=== PATIENT | female | born 1970 | race Caucasian/White ===

== ENCOUNTER 2018-02-19 13:06 | Observation (INO) | payer BC ==
[2018-02-19] VITALS (9 sets, daily range): BP systolic 84–107; BP diastolic 45–67; BMI 19.4
[~2018-02-19] VITALS: Ht 162.6 cm; Wt 51.4 kg
--- NOTE | ~2018-02-19 | MORECARE ---
CASE MANAGEMENT DISCHARGE SUMMARY PATIENT: MARTINA WOOD ANN UNIT: [id number] ADM DATE: 02/19/18 AGE: 47 : 70 SEX: F ROOM/BED: D.5718 AUTHOR: HIRAL BOURGEOIS PHYSICIAN: REFERRING PHYSICIAN: RANDA SOSA MD DATE OF SERVICE: 02/23/18 Discharge Plan Patient Name: MARTINA WOOD [facility] [facility] 1970 Planned Disposition: Home Anticipated Discharge Date: 02/22/18 Discharge Date: 02/20/2018 Expected LOS: 3 Initial Reviewer: [email or web address] Initial Review Date: 02/23/2018 Generated: 02/23/18 10:45 am Patient Name: MARTINA WOOD Page [id number] at 0945 All edits/amendments must be made on the electronic document DICTATION DATE: 02/23/18943 WASTE SALVAGER: JOSE M 02/23/1844 RPT#: [id number] DC DATE:02/20/18 STATUS: DIS IN [facility] [address] [place] [address] END OF REPORT
--- NOTE | ~2018-02-19 | DS ---
PATIENT:MARTINA WOOD :70 MEDICAL RECORD: [id number] DISCHARGE SUMMARY ADMISSION DATE: 02/19/18 DISCHARGE DATE: 02/20/18 DATE OF DISCHARGE: 02/20/2018 DIAGNOSES: 1. Chest pain. 2. Normal cardiac catheterization. 3. Hyperlipidemia. Mrs. Wood presents with chest pain; however, cardiac catheterization is totally normal. Chest pain is noncardiac in etiology. No further cardiac workup needs to be ascertained. TRANSINT:[id number] Voice Confirmation ID: [id number] DOCUMENT ID: [id number] RANDA SOSA MD at 1324 CC: [id number] DICTATION DATE: 02/20/18 1330 MOTOR HOTEL MANAGER: 02/21/18 0713 DIS IN 02/20/18 [place] [address] [place] [address]
--- NOTE | ~2018-02-19 | OP ---
PATIENT NAME: MARTINA WOOD MEDICAL RECORD: [id number] :[birth year] LOCATION:D.M2 D.2119 ADMISSION DATE:02/19/18 SURGEON: RANDA SOSA MD DATE OF OPERATION: 02/20/2018 DATE OF SERVICE: 02/20/2018 PROCEDURES: 1. Left heart catheterization. 2. Selective coronary angiography. 3. Left ventriculogram. INDICATION: Chest pain compatible with angina. PROCEDURE IN DETAIL: After informed consent was obtained and after detailed explanation of risks, benefits as well as alternative therapies, the patient elected to proceed with angiogram and heart catheterization. The right femoral area was prepped and draped in normal sterile fashion. Right femoral artery was cannulated via modified Seldinger technique with placement of 5-Chinese sheath. All catheters exchanged through this sheath. FINDINGS: Left ventriculogram was performed in standard 30-degree PACE view, reveals good cardiac wall motion throughout all segments. Overall ejection fraction estimated at 60%. SELECTIVE CORONARY ANGIOGRAPHY: Left main, left anterior descending, left circumflex, right coronary artery are all smooth-walled vessels with no angiographic evidence of coronary artery disease. OVERALL IMPRESSION: 1. No angiographic evidence of coronary artery disease. 2. Normal left heart pressures. 3. Normal left ventricular systolic function. Chest pain is noncardiac in etiology. TRANSINT:[id number] Voice Confirmation ID: [id number] DOCUMENT ID: [id number] RANDA SOSA MD at 1324 CC: [id number] DICTATION DATE: 02/20/18 1330 DEMONSTRATOR ELECTRIC GAS APPLIANCES: 02/20/18 1420 DIS IN 02/20/18 [place] [address] [place] [address]
--- NOTE | ~2018-02-19 | HEMODYNAMI ---
PATIENT:MARTINA WOOD MEDICAL RECORD: [id number] : 70 [facility] ADMISSION DATE: 02/19/18 Generatedon:02/20/201813:27 Patient name: MARTINA WOOD Patient #: [id number] SSN: : 1970 Date of study: 02/20/2018 Page: Of Hemodynamic Procedure Report Patient Data Patient Demographics Procedure consent was obtained First Name: MARTINA Gender: Female Last Name: NINA : 1970 [facility] Initial: YULIA Age: 47 year(s) Patient #: [id number] Race: Unknown Additional ID: [id number] Contact details Address: [address] [place] [address] State: [place] City: [place] Zip code: [address] Past Medical History Allergies Allergen Reaction Date Comments Reported Codeine 02/20/2018 Admission Admission Data Admission Date: 02/19/2018 Admission Time: 16:28 Room #: D.2119 Procedure Procedure Types Cath Procedure Diagnostic Procedure [facility] w/Coronaries Procedure Description Procedure Date Procedure Date: 02/20/2018 Procedure Start Time: 13:17 Procedure End Time: 13:25 Procedure Staff Name Function Taran Chao MD Performing Physician Savannah Moreira RT Monitor Silvino Zambrano RT Scrub Kezia Harding RN Nurse Jordi Pulido RN Fourth Officer Procedure Data Cath Procedure Fluoroscopy Diagnostic fluoroscopy Total fluoroscopy Time: 0.9 time: 0.9 min min Diagnostic fluoroscopy Total fluoroscopy dose: 38 dose: 38 mGy mGy Contrast Material Contrast Material Type Amount (ml) Isovue 300 49 Entry Location Entry Primary Successful Side Size Upsize Upsize Entry Closure Succes sful Closure Location (Fr) 1 (Fr) 2 (Fr) Remarks Device Remarks Femoral Right 5 Fr Exoseal artery Estimated blood loss: 5 ml Diagnostic catheters Device Type Used For End Catheter Placement MULTIPACK Pigtail 5 Fr LV Angiography catheter MULTIPACK JL 4.0 5Fr Left Coronary catheter Angiography MULTIPACK 3DRC 5Fr Right Coronary catheter Angiography Procedure Complications No complications Procedure Medications Medication Administration Route Dosage Oxygen etCO2 Nasal cannula 2 l/min Lidocaine 2% added to field 20 Heparin Flush Bag added to field 2 bags (1000units/500ml NS) 0.9% NaCl I.V. 100 ml/hr Versed I.V. 1 mg Fentanyl I.V. 50 mcg Versed I.V. 1 mg Versed I.V. 1 mg Fentanyl I.V. 50 mcg Hemodynamics Rest Heart Rate: 72 (bpm) Snapshots Pre Cath Intra NCS Post Cath Vital Signs Time Heart Resp SPO2 etCO2 NIBP Rhythm Pain Sedation Rate (ipm) (%) (mmHg) (mmHg) Status Level (bpm) 13:07:15 69 23 98 33.9 99/57(82) NSR 0 (11) 10(A) , No pain 13:11:19 68 15 96 26.4 94/60(74) NSR 0 (11) 10(A) , No pain 13:15:23 63 12 98 28.79 110/50(71) NSR 0 (11) 10(A) , No pain 13:19:27 62 15 96 0 93/67(72) NSR 0 (11) 9(A) , No pain 13:23:24 66 16 94 35 107/62(79) NSR 0 (11) 9(A) , No pain 13:26:57 65 15 95 18.1 105/67(89) NSR 0 (11) 10(A) , No pain Medications Time Medication Route Dose Verified Delivered Reason Notes Eff ectiveness by by 13:10:43 Oxygen etCO2 2 Taran Mast used for Nasal l/min Jeremie Harding RN procedure cannula 13:11:39 Lidocaine 2% added 20ml Taran Chirinos for local to vial Jeremie Chao MD anesthetic field 13:11:46 Heparin Flush added 2 Taran Taran used for Bag to bags Jeremie Chao MD procedure (1000units/500ml field NS) 13:11:54 0.9% NaCl I.V. 100 Tarancelestine Fernandezie Per ml/hr Jeremie Harding RN physician 13:14:30 Versed I.V. 1 mg Taran Mast for Jeremie Harding RN sedation 13:14:36 Fentanyl I.V. 50 Taran Fernandezie for mcg Jeremie Harding RN sedation 13:17:28 Versed I.V. 1 mg Taran Mast for Jeremie Harding RN sedation 13:17:34 Fentanyl I.V. 50 Taran Mast for mcg Jeremie Harding RN sedation 13:21:30 Versed I.V. 1 mg Taran Mast for Jeremie Harding RN sedation Procedure Log Time Note 12:40:29 Silvino Zambrano RT(R) sent for patient. Start room use. 12:45:53 Time tracking: Regular hours (M-F 7:00 - 5:00) 12:45:57 Plan of Care:Hemodynamics will remain stable., Cardiac rhythm will remain stable., Comfort level will be maintained., Respiratory function will remain adequate., Patient/ family verbilizes understanding of procedure., Procedure tolerated without complication., Recovers from procedure without complications.. 12:59:53 Patient received from Med II to CCL 3 Alert and oriented. Tansferred to table in Supine position. 12:59:54 Warm blankets applied, and diana hugger turned on for patient comfort. 12:59:55 Correct patient and procedure confirmed by team. 12:59:57 Signed procedure consent form obtained from patient. 12:59:57 ECG and BP/O2 sat monitors applied to patient. 13:06:10 Vital chart was started 13:06:13 Full Disclosure recording started 13:06:19 Rhythm: sinus rhythm 13:06:46 H&P Date Dictated: 02/20/2018 Within 30 days and on chart.. 13:07:05 Pre-procedure instructions explained to patient. 13:07:05 Pre-op teaching completed and patient verbalized understanding. 13:07:13 Family in patients room. 13:07:15 Patient NPO since Midnight. 13:07:22 Is the patient allergic to Iodine/contrast media? No. 13:07:29 Patient allergic to Codeine 13:07:31 Is patient on blood thinner?Yes 13:07:34 ACC The patient was administered the following blood thiners within the last 24 hours: ACCAspirin, ACCPlavix 13:07:36 Patient diabetic? No. 13:07:39 Previous problem with sedation/anesthesia? No ? 13:07:47 Snore? Yes 13:07:48 Sleep apnea? No 13:07:49 Deviated septum? No 13:07:50 Opens mouth fully? Yes 13:07:51 Sticks out tongue? Yes 13:07:53 Airway obstruction? No ? 13:07:55 Dentures? No ? 13:07:58 Pre procedure: right dorsailis pedis pulse 2+ Normal; easily identifiable; not easily obliterated 13:08:00 Modified Kiran's test Ulnar > 7 seconds. 13:08:02 Patient pain scale 0/10 ?. 13:08:08 IV patent on arrival in left forearm with 0.9% NaCl at [facility]. 13:08:11 Lab results completed and on chart. 13:08:15 Right groin area was prepped with chlora-prep and draped in sterile fashion 13:08:16 Alarms reviewed by R. N. 13:08:16 Sharps counted by scrub and verified by R.N. 13:08:20 Use device set Femoral Dx 13:08:21 ACIST Syringe (50193) opened to sterile field. 13:08:21 Bag Decanter (2002S) opened to sterile field. 13:08:22 Medline Cath Pack ([id number]) opened to sterile field. 13:08:23 DIAGNOSTIC WIRE .035 260cm J wire (444463) opened to sterile field. 13:08:24 ACIST Hand Control (70656) opened to sterile field. 13:08:24 ACIST Manifold (37845) opened to sterile field. 13:08:25 DIAGNOSTIC Multipack 5Fr catheter set ([id number]) opened to sterile field. 13:08:25 Tegaderm 4 x 4 (1626W) opened to sterile field. 13:08:26 SHEATH 5FR Salome ([id number]) opened to sterile field. 13:09:46 Baseline sample Acquired. 13:09:51 Final Timeout: patient, procedure, and site verified with staff and physician. All members of the team are in agreement. 13:09:53 Right groin site verified by team. 13:09:56 Physical assessment completed. ASA score P 2 - A patient with mild systemic disease as per Taran Chao MD. 13:09:59 Sedation plan: IV Moderate Sedation Medication:Versed, Fentanyl 13:10:43 Oxygen 2 l/min etCO2 Nasal cannula was administered by Kezia Harding RN; used for procedure; 13:11:39 Lidocaine 2% 20ml vial added to field was administered by Taran Chao MD; for local anesthetic; 13:11:46 Heparin Flush Bag (1000units/500ml NS) 2 bags added to field was administered by Taran Chao MD; used for procedure; 13:11:54 0.9% NaCl 100 ml/hr I.V. was administered by Kezia Harding RN; Per physician; 13:14:30 Versed 1 mg I.V. was administered by Kezia Harding RN; for sedation; 13:14:36 Fentanyl 50 mcg I.V. was administered by Kezia Harding RN; for sedation; 13:16:09 Zero performed for pressure channel P1 13:17:23 Procedure started. 13:17:28 Versed 1 mg I.V. was administered by Kezia Harding RN; for sedation; 13:17:32 Local anesthetic to right femoral artery with Lidocaine 2% by Taran Chao MD.INITIAL ACCESS ONLY 13:17:34 Fentanyl 50 mcg I.V. was administered by Kezia Harding RN; for sedation; 13:18:33 A 5 Fr sheath was inserted into the Right Femoral artery 13:19:00 A MULTIPACK Pigtail 5 Fr catheter was advanced over the wire and used for LV Angiography. 13:19:11 LV gram done using PACE 13:19:14 Injector settings: Ml/sec: 10, Volume: 20, 13:19:21 EF : 60 % 13:19:23 Catheter removed. 13:20:00 A MULTIPACK JL 4.0 5Fr catheter was advanced over the wire and used for Left Coronary Angiography. 13:20:36 Catheter removed. 13:20:56 A MULTIPACK 3DRC 5Fr catheter was advanced over the wire and used for Right Coronary Angiography. 13:21:30 Versed 1 mg I.V. was administered by Kezia Harding RN; for sedation; 13:21:34 Catheter removed. 13:21:38 EXOSEAL 5Fr (EX500) opened to sterile field. 13:21:47 Sheath removed intact; hemostasis achieved with Exoseal to the Right Femoral artery. 13:21:49 Procedure ended.(Physican Out) 13:22:04 Fluoroscopy time 00.90 minutes. 13:22:09 Fluoroscopy dose: 38 mGy 13:22:09 Flurop Dose total: 38 13:22:43 Contrast amount:Isovue 300 49ml. 13:22:44 Sharps counted by scrub and verified by R.N. 13:22:46 Insertion/operative site no bleeding no hematoma. 13:22:48 Post-op/insertion site Right Femoral artery dressed using a 4 x 4 and Tegaderm. 13:22:51 Post right femoral artery:stable, clean and dry 13:22:55 Post Procedure Pulses reassessed and unchanged 13:22:58 Post-procedure physical assessment completed. ASA score P 2 - A patient with mild systemic disease as per Taran Caho MD. 13:23:01 Post procedure rhythm: unchanged. 13:23:06 Estimated blood loss: 5 ml 13:23:16 Post procedure instruction explained to patient.Patient verbalizes understanding. 13:23:18 Patient needs reinforcement of post procedure teaching. 13:23:25 Procedure Complication : No complications 13:23:26 See physician's report for complete and final results. 13:24:13 Procedure and supply charges have been captured, reviewed, submitted and are correct. 13:24:49 Vital chart was stopped 13:24:51 Report given to PCU. 13:24:54 Patient transfered to PCU with Bed. 13:25:03 Procedure ended. 13:25:03 Full Disclosure recording stopped 13:25:05 End room use (Document Last) Device Usage Item Name Manufacture Quantity Catalog Hospital Part Current Minimal L ot# / Number Charge Number Stock Stock Serial# Code ACIST Acist 1 88418 049797 122665 160934 20 Syringe Medical (01384) Systems Inc Bag Microtek 1 990827 50038 094656 5 Decanter Medical Inc. () Medline Medline 1 [id number] 681221 34490 410270 5 Cath Pack ([id number]) DIAGNOSTIC St Franko 1 937614 938729 627099 250719 30 WIRE .035 260cm J wire (756375) ACIST Hand Acist 1 99154 998814 068230 547683 5 Control Medical (08535) Systems Inc ACIST Acist 1 25489 910663 860297 304448 5 Manifold Medical (21721) Systems Inc DIAGNOSTIC Cardinal 1 [id number] 144771 92613 813004 30 Multipack Health 5Fr catheter set ([id number]) Tegaderm 4 3M 1 1626W 126319 854290 872282 5 x 4 (1626W) SHEATH 5FR Terumo 1 ONA934 973499 170819 382392 5 Salome (HWP637) MULTIPACK Cardinal 1 382226 5 Pigtail 5 Health Fr catheter MULTIPACK Cardinal 1 848726 5 JL 4.0 5Fr Health catheter MULTIPACK Cardinal 1 439787 5 3DRC 5Fr Health catheter EXOSEAL 5Fr Cardinal 1 EX500 082000 378597 366265 10 (EX500) Health Signature Audit Hayden Stage Time Signature Unsigned Intra-Procedure 02/20/2018 Savannah 1:27:35 PM Counts RT(R) Signatures Monitor : Savannah Signature : Counts RT Date : Time : [place] [id number]
[~2018-02-19 13:06] MED LIST: ANTIVERT25 MG PO; DEMEROL50 MG PO; IBUPROFEN600 MG PO; PREMARIN0.625 MG PO; VIVELLE-DOT 00.05 MG TD
[2018-02-19] MEDS ORDERED: LIPITOR10 MG (13:10)
[2018-02-19 13:41] LABS: BASOPHILS 0 % (0-2); EOSINOPHILS 0.9 % (0-7); HEMATOCRIT 43.1 % (36.0-48.0); HEMOGLOBIN 15.2 g/dL (12-16); IMMATURE GRANULOCYTES 0.2 % (0-5); LYMPHOCYTES 39.5 % (15-50); MCH 32.6 pg (26.0-34.0); MCHC 35.3 g/dL (31.0-37.0); MCV 92.5 fL (80.0-100.0); NEUTROPHILS 54.4 % (40-80); RBC 4.66 10x6/uL (4.00-5.40); RDW 12.4 % (11.5-14.5); WBC 6.4 10x3/uL (4.8-10.8)
[2018-02-19 13:44] LABS: PLATELET COUNT 241 10x3/uL (130-400)
[2018-02-19 13:51] LABS: APTT 29.6 SECONDS (22.8-39.4); INR 0.93 (0.85-1.17)
[2018-02-19 13:59] LABS: ALBUMIN 3.9 g/dL (3.4-5.0); ALKALINE PHOSPHATASE 77 U/L (46-116); ALT (SGPT) 18 U/L (10-68); CALC OSMOLALITY 275 mosm/kg (275-300); CARBON DIOXIDE 23.8 mmol/L (21.0-32.0); CHLORIDE - SERUM 105 mmol/L (98-107); CREATININE - SERUM 0.8 mg/dL (0.6-1.3); POTASSIUM - SERUM 3.9 mmol/L (3.5-5.1); PROTEIN - SERUM 7.3 g/dL (6.4-8.2); SODIUM 140 mmol/L (136-145); UREA NITROGEN 6 mg/dL (7-18); eGFR NON AFRICAN AMERICAN 81 mL/min (90-120)
[2018-02-19 14:00] LABS: GLUCOSE 88 mg/dL (74-106)
[2018-02-19 14:07] LABS: CKMB 0.4 U/L (0.0-3.6); CREATINE KINASE 87 UL (21-215); MAGNESIUM - SERUM 2.3 mg/dL (1.8-2.4); TROPONIN-I < 0.017 ng/mL (0.000-0.060)
[2018-02-19 20:39] LABS: CKMB 0.3 U/L (0.0-3.6); CREATINE KINASE 81 UL (21-215); TROPONIN-I < 0.017 ng/mL (0.000-0.060)
[2018-02-20] VITALS: BP 102/47
[2018-02-20 02:56] LABS: CKMB 0.4 U/L (0.0-3.6); CREATINE KINASE 76 UL (21-215); TROPONIN-I < 0.017 ng/mL (0.000-0.060)
[2018-02-20 05:51] VITALS: BP 101/68
[2018-02-20 08:19] VITALS: Ht 162.6 cm; Wt 51.4 kg
[2018-02-20 08:33] VITALS: BP 87/51
[2018-02-20 09:06] LABS: HEMOGLOBIN 14.1 g/dL (12-16); MCH 32.6 pg (26.0-34.0); MCHC 34.4 g/dL (31.0-37.0); MEAN PLATELET VOLUME 10.5 fL (7.4-10.4); PLATELET COUNT 243 10x3/uL (130-400); RBC 4.33 10x6/uL (4.00-5.40); RDW 12.4 % (11.5-14.5); WBC 7.4 10x3/uL (4.8-10.8)
[2018-02-20 09:12] LABS: ANION GAP 11.5 mmol/L (8-16); CALCIUM 8.7 mg/dL (8.5-10.1); CARBON DIOXIDE 30.1 mmol/L (21.0-32.0); CREATININE - SERUM 0.9 mg/dL (0.6-1.3); MCV 94.7 fL (80.0-100.0); POTASSIUM - SERUM 3.6 mmol/L (3.5-5.1)
[2018-02-20 10:03] LABS: ANISOCYTOSIS OCC; EOSINOPHILS 4 % (0-7); LYMPHOCYTES 50 % (15-50); MONOCYTES 10 % (2-11); NEUTROPHILS 32 % (40-80); PLATELET ESTIMATE NORMAL
[2018-02-20 12:03] VITALS: BP 91/55
[2018-02-20 16:16] VITALS: BP 95/48
== END 2018-02-20 17:49 | disposition home or self-care (01) ==
LOC: D.ER 13:06 → D.EDHOLD 16:28 → D.M2 16:28 → OBSVTIME 16:28 → D.M2 16:28
PROVIDERS: Emergency Medicine; Internal Medicine Interventional Cardiology
DX: R07.89 Other chest pain (principal); E78.5 Hyperlipidemia, unspecified; F17.210 Nicotine dependence, cigarettes, uncomplicated

== ENCOUNTER 2018-02-21 17:25 | Emergency (ER) | payer BC ==
[~2018-02-21] VITALS: Ht 162.6 cm; Wt 51.4 kg
[~2018-02-21 17:25] MED LIST changes: +LIPITOR10 MG
[2018-02-21 17:38] VITALS: Ht 162.6 cm; Wt 51.4 kg
[2018-02-21 18:17] LABS: BASOPHILS 0.1 % (0-2); EOSINOPHILS 1.8 % (0-7); HEMATOCRIT 40.5 % (36.0-48.0); HEMOGLOBIN 14.3 g/dL (12-16); IMMATURE GRANULOCYTES 0.1 % (0-5); LYMPHOCYTES 33.6 % (15-50); MCH 32.7 pg (26.0-34.0); MCHC 35.3 g/dL (31.0-37.0); MEAN PLATELET VOLUME 10.1 fL (7.4-10.4); MONOCYTES 5.6 % (2-11); NEUTROPHILS 58.8 % (40-80); PLATELET COUNT 215 10x3/uL (130-400); RBC 4.37 10x6/uL (4.00-5.40); RDW 12.2 % (11.5-14.5)
[2018-02-21 18:21] LABS: MCV 92.7 fL (80.0-100.0); WBC 9.6 10x3/uL (4.8-10.8)
[2018-02-21 18:22] LABS: APPEARANCE CLEAR (CLEAR); BILIRUBIN NEGATIVE (NEGATIVE); COLOR YELLOW (YELLOW); GLUCOSE NEGATIVE (NEGATIVE); KETONE NEGATIVE (NEGATIVE); NITRITE NEGATIVE (NEGATIVE); PROTEIN NEGATIVE (NEGATIVE); RED CELLS - URINE OCC /hpf (0-5); UROBILINOGEN NORMAL (NORMAL); WHITE CELLS - URINE 0-5 /hpf (0-5)
[2018-02-21 18:23] LABS: BACTERIA FEW /hpf (NONE SEEN)
[2018-02-21 18:24] LABS: EPITHELIAL CELLS OCC /hpf (0-5)
[2018-02-21 18:32] LABS: ALBUMIN 3.6 g/dL (3.4-5.0); ALKALINE PHOSPHATASE 74 U/L (46-116); ALT (SGPT) 16 U/L (10-68); BILIRUBIN - TOTAL 0.17 mg/dL (0.2-1.3); CALC OSMOLALITY 269 mosm/kg (275-300); CALCIUM 8.4 mg/dL (8.5-10.1); CARBON DIOXIDE 22.8 mmol/L (21.0-32.0); CHLORIDE - SERUM 102 mmol/L (98-107); CREATININE - SERUM 0.8 mg/dL (0.6-1.3); GLUCOSE 86 mg/dL (74-106); INR 0.92 (0.85-1.17); POTASSIUM - SERUM 3.4 mmol/L (3.5-5.1); PROTEIN - SERUM 6.8 g/dL (6.4-8.2); PROTIME 11.9 SECONDS (11.6-15.0); SODIUM 137 mmol/L (136-145); UREA NITROGEN 4 mg/dL (7-18); eGFR NON AFRICAN AMERICAN 81 mL/min (90-120)
[2018-02-21 18:36] LABS: AMYLASE - SERUM 62 U/L (25-115); LIPASE 202 U/L (73-393); TROPONIN-I < 0.017 ng/mL (0.000-0.060)
[2018-02-21 21:50] VITALS: BP 108/66
== END 2018-02-21 21:51 | disposition home or self-care (01) ==
LOC: D.ER 17:25
PROVIDERS: Family Medicine
DX: N93.9 Abnormal uterine and vaginal bleeding, unspecified (principal); Z98.890 Other specified postprocedural states; R10.2 Pelvic and perineal pain; M54.5 Low back pain; F17.200 Nicotine dependence, unspecified, uncomplicated